=== PATIENT | male | born 1975 | race Caucasian/White ===

== ENCOUNTER 2017-06-05 06:46 | Day surgery (SDC) | payer OTHER ==
[~2017-06-05] VITALS: Ht 177.8 cm; Wt 101.6 kg
[~2017-06-05 06:46] MED LIST: ATOR40TA PO; GABA100 PO; HYDACE5 PO; IBUP800 PO; LORA10 PO; NAPR500 PO; Oxycodone-Apap1 EAC3 PO; RXHYDACE PO; Sudogest30 MG PO
== END 2017-06-05 10:27 | disposition home or self-care (01) ==
LOC: ORSCSDS 06:46
PROVIDERS: Orthopaedic Surgery
PROC: 0SBC4ZZ Excision of Right Knee Joint, Percutaneous Endoscopic Approach (ICD-10-PCS; principal; 2017-06-05 08:00)
DX: M94.261 Chondromalacia, right knee (principal); M23.241 Derangement of anterior horn of lateral meniscus due to old tear or injury, right knee; M65.9 Synovitis and tenosynovitis, unspecified; E78.00 Pure hypercholesterolemia, unspecified; Z79.899 Other long term (current) drug therapy
CPT/HCPCS: J0171; J0690; J1100; J1885; J2250; J2405; J2795; J3010; J7120

== ENCOUNTER 2017-08-03 06:18 | Day surgery (SDC) | payer OTHER ==
[~2017-08-03] VITALS: Ht 177.8 cm; Wt 104.0 kg
[2017-08-03] MEDS ORDERED: FOLGARD TABLET1 EACH PO (06:52)
[2017-08-03] MEDS ORDERED: ATOR40TA (06:52)
[2017-08-03] MEDS ORDERED: MELO7.5 (06:53)
[2017-08-03] MEDS ORDERED: Voltaren100 GM (06:53)
== END 2017-08-03 10:20 | disposition home or self-care (01) ==
LOC: ORSCSDS 06:18
PROVIDERS: Podiatrist Foot & Ankle Surgery
PROC: 0SGM04Z Fusion of Right Metatarsal-Phalangeal Joint with Internal Fixation Device, Open Approach (ICD-10-PCS; principal; 2017-08-03 07:30)
PROC: 0QSN04Z Reposition Right Metatarsal with Internal Fixation Device, Open Approach (ICD-10-PCS; principal; 2017-08-03 07:30)
PROC: 0QPN04Z Removal of Internal Fixation Device from Right Metatarsal, Open Approach (ICD-10-PCS; principal; 2017-08-03 07:30)
DX: M20.11 Hallux valgus (acquired), right foot (principal); M21.961 Unspecified acquired deformity of right lower leg; T84.84XA Pain due to internal orthopedic prosthetic devices, implants and grafts, initial encounter; Z79.899 Other long term (current) drug therapy
CPT/HCPCS: C1713; C1769; J0171; J0690; J1100; J1885; J2250; J2405; J3010; J7120

== ENCOUNTER → 2018-04-04 | Outpatient (CLI) | payer OTHER ==
[~2018-04-04] MED LIST changes: +ACIDOPHILUS1 EAC1 PO; +ATOR40TA; +DOXY100 PO; +FOLGARD TABLET1 EACH PO; +IBUP600 PO; +MELO7.5; +OSEL75CA PO; +PROMETHAZINE CODEINE PO; +VITAMIN D-32000 UNIT PO; +Voltaren100 GM
== END | disposition home or self-care (01) ==
LOC: LAB EV 13:08 → LAB SHORT 13:08
DX: R50.9 Fever, unspecified (principal)
CPT/HCPCS: 87070

== ENCOUNTER 2018-04-05 15:07 | Inpatient (IN) | payer OTHER ==
[~2018-04-05] VITALS: Ht 177.8 cm; Wt 103.9 kg
[~2018-04-05 15:07] MED LIST changes: -ACIDOPHILUS1 EAC1 PO; -DOXY100 PO; -IBUP600 PO; -OSEL75CA PO; -PROMETHAZINE CODEINE PO; -VITAMIN D-32000 UNIT PO
--- NOTE | 2018-04-05 20:07 | NUR ---
report from Nida RN in ER on PT being admitted with inluenza A positive and will have nasal swab for MRSA. Will be obs status, await admission will place in Droplet contact isolation for influenza A positive and rule out MRSA.
[2018-04-05] MEDS ORDERED: IBUP600 PO (20:49)
[2018-04-05] MEDS ORDERED: IBUP800 PO (20:54)
[2018-04-05] MEDS ORDERED: VITAMIN D-32000 UNIT PO (20:59)
[2018-04-05] MEDS ORDERED: PROMETHAZINE CODEINE PO (21:02)
--- NOTE | 2018-04-05 21:54 | NUR ---
SNACK GIVEN TO PT AND ICE PACK FOR HEAD.
[2018-04-06 05:02] LABS: Hematocrit 35.6 % (37.0-53.0); Hemoglobin 12.1 g/dL (13.5-17.5); Mean Corpuscular HGB 31.8 pg (26.0-34.0); Mean Platelet Volume 9.8 fL (9.1-12.4); Platelet Count 191 K/mm3 (150-400); RDW Coefficient Variation 12.7 % (11.7-14.2); White Blood Cell Count 10.76 K/mm3 (4.00-11.30)
[2018-04-06 05:05] LABS: Mean Corpuscular Volume 94 fL (80-100)
[2018-04-06 05:18] LABS: Anion Gap 7 mmol/L (6-16); Blood Urea Nitrogen 11 mg/dL (8-24); CO2, Blood 26 mmol/L (21-32); Chloride, Blood 109 mmol/L (98-108); Creatinine, Blood 0.91 mg/dL (0.60-1.20); Glomerular Filtration Rate >60 (60-); Glucose, Blood 110 mg/dL (70-99); Potassium, Blood 3.7 mmol/L (3.5-5.5); Sodium, Blood 142 mmol/L (136-145)
[2018-04-06 05:35] LABS: BAND PERCENT MAN 34 % (0-8); BASOPHILS PERCENT MAN 0 % (0-2); EOSINOPHILS PERCENT MAN 0 % (0-6); LYMPHOCYTES ABSOLUTE MAN 1.18 K/mm3 (0.84-5.20); LYMPHOCYTES PERCENT MAN 11 % (21-46); METAMYELOCYTE PERCENT MAN 1 % (0-0); MONOCYTES PERCENT MAN 1 % (4-13); NEUTROPHILS ABSOLUTE MAN 9.36 K/mm3 (1.96-9.15); SEG NEUTROPHILS PERCENT MAN 53 % (41-73); TOTAL CELLS COUNTED 100
--- NOTE | 2018-04-06 05:43 | NUR ---
42 year old Male admitted with pneumonia and influenza positive and sepsis. he had fever of 102.8 orally which came down to 99.3 oral with fluids and tylenol. medicated for cough with promethazine and codeine surup 5 ml. pt says bloody thin sputum stopped after cough med. pt had requested ibuprofen rx but DR ROBERTS declined due to potential bleeding from nsaid. pt voids large amts of clear urine.
--- NOTE | 2018-04-06 07:28 | NUR ---
ASSUMED CARE OF PT- RECIEVED REPORT FROM NIGHT [facility] WALDROP. PER REPORT PT HAD A HIGH FEVER ON ADMIT TYLENOL AND ICE PACKS GIVEN. PT DRINKING LOTS OF ICE WATER, ORAL TEMP PROBABLY LESS ACCURATE D/T ICE WATER; HIS TEMP THIS MORNING ON MORNING VITALS WAS 102.9, GAVE TYLENOL WILL RECHECK TEMP IN AN HOUR.
--- NOTE | 2018-04-06 18:18 | NUR ---
SHIFT SUMMARY- PT HAS HAD NO ACUTE CHANGES TODAY TEMPERATURE GOT HIGH AND PT WAS MEDICATED WITH TYLENOL FOR THIS, IVF STILL RUNNING AT THIS TIME. PT C/O SMALL BODY ACHES WHEN THE FEVER STARTS BUT STATED THE TYLENOL SEEMS TO WORK WELL. PT STATED HE CANT TAKE NAPROXEN D/T IT UPSETTING HIS STOMACH WHEN HE HAS TAKEN IT IN THE PAST.
--- NOTE | 2018-04-07 04:16 | NUR ---
pt continues in droplet contact isolation for positive influenza A with rt ll pneumonia. continues on room air with very coarse breath sounds and some pale blood tinged sputum. continues on vancomycin with rocephin added yesterday. mild gen pain relieved by tylenol 650 mg. voids large amt of clear yellow urine. drinks large amt of icewater.
[2018-04-07 05:26] LABS: BASOPHILS ABSOLUTE AUTO 0.02 K/mm3 (0.00-0.23); BASOPHILS PERCENT AUTO 0 % (0-2); EOSINOPHILS ABSOLUTE AUTO 0.04 K/mm3 (0.00-0.68); EOSINOPHILS PERCENT AUTO 0 % (0-6); Hematocrit 33.7 % (37.0-53.0); Hemoglobin 11.5 g/dL (13.5-17.5); IMMATURE GRAN ABSOLUTE AUTO 0.17 K/mm3 (0.00-0.10); IMMATURE GRAN PERCENT AUTO 2 % (0-1); LYMPHOCYTES ABSOLUTE AUTO 1.48 K/mm3 (0.84-5.20); LYMPHOCYTES PERCENT AUTO 14 % (21-46); MONOCYTES ABSOLUTE AUTO 0.41 K/mm3 (0.16-1.47); MONOCYTES PERCENT AUTO 4 % (4-13); Mean Corpuscular HGB 31.1 pg (26.0-34.0); Mean Corpuscular HGB Conc 34.1 g/dL (31.5-36.5); NEUTROPHILS ABSOLUTE AUTO 8.49 K/mm3 (1.96-9.15); NEUTROPHILS PERCENT AUTO 80 % (41-73); Platelet Count 231 K/mm3 (150-400); RDW Coefficient Variation 12.8 % (11.7-14.2); RDW Standard Deviation 42.5 fL (35.1-46.3); White Blood Cell Count 10.61 K/mm3 (4.00-11.30)
[2018-04-07 05:27] LABS: Mean Corpuscular Volume 91 fL (80-100)
[2018-04-07 05:54] LABS: Anion Gap 7 mmol/L (6-16); Blood Urea Nitrogen 12 mg/dL (8-24); Bun/Creatinine Ratio 15.5 (12.0-20.0); CO2, Blood 26 mmol/L (21-32); Calcium, Blood 7.9 mg/dL (8.5-10.1); Chloride, Blood 110 mmol/L (98-108); Creatinine, Blood 0.77 mg/dL (0.60-1.20); Glomerular Filtration Rate >60 (60-); Glucose, Blood 88 mg/dL (70-99); Potassium, Blood 3.9 mmol/L (3.5-5.5); Sodium, Blood 143 mmol/L (136-145)
--- NOTE | 2018-04-07 08:16 | NUR ---
ASSUMED CARE OF PT- BEDSIDE REPORT COMPLETE WITH ROSHAN WALDROP. PER REPORT PT ONLY HAD ONE INCIDENCE OF FEVER LAST NIGHT. ON MORNING VITALS TEMP WAS UP A LITTLE TO 99.0. MEDICATED WITH TYLENOL PT HOT TO THE TOUCH BY THAT TIME. IV INFUSING ABX AT THIS TIME. SOME BODY ACHES STARTING WHEN TYLENOL WAS GIVEN.
[2018-04-07 08:33] LABS: Vancomycin, Trough 5.4 ug/mL (5.0-10.0)
--- NOTE | 2018-04-07 12:56 | NUR ---
SPOKE TO DR HENRIQUEZ, PT RETAINING URINE. NEW ORDER TO PLACE [facility].
--- NOTE | 2018-04-07 15:45 | NUR ---
PT STATED ON LAST ROUNDS THAT HE IS FEELING MUCH BETTER AND COULD" GO HOME ANY TIME NOW" STAFF INFORMED HIM HE COULD WALK IN THE HALLS IF HE FELT HE WANTED TOO. PT HAS CHOSEN NOT TO. STATED "I'M NOT GOING OUT THERE."
--- NOTE | 2018-04-07 18:53 | NUR ---
SHIFT SUMMARY- PT HAS SHOWN GREAT IMPROVEMENT. PT STATES HE FEELS GREAT COMPARED TO WHEN HE GOT HERE. IV IS SL AT THIS TIME. PT ASKED ONCE ABOUT POSSIBLE DISCHARGE BUT IS WILLING TO STAY LONG HE HAS TO IN ORDER TO GET ABX. PT HAD A SHOWE TODAY AND ONLY 1 DOSE OF TYLENOL EARLY IN THE SHIFT. NO C/O PAIN AND NO FEVER AFTER TYLENOL WAS GIVEN THIS MORNING.
[2018-04-08] MEDS ORDERED: DOXY100 PO (10:01)
[2018-04-08] MEDS ORDERED: OSEL75CA PO (10:02)
[2018-04-08] MEDS ORDERED: ACIDOPHILUS1 EAC1 PO (10:02)
--- NOTE | 2018-04-08 11:20 | NUR ---
PATIENT D/C'D TO HOME WITH FAMILY. D/C INSTRUCTIONS AND EDUCATION DISCUSSED WITH PATIENT AND COPY PROVIDED. PATIENT DENIES ANY FURTHER QUESTIONS OR CONCERNS. RX MEDICATIONS FAXED TO [facility].
== END 2018-04-08 11:31 | disposition home or self-care (01) | DRG 871 ==
LOC: ER 15:07 → MEDS 15:08 → ER 15:08 → MEDS 20:39 → ENPENDDIS 04-08 10:08 → MEDS 04-08 11:31
PROVIDERS: Pharmacist; ADMIT Internal Medicine
DX: A41.9 Sepsis, unspecified organism (principal); J10.00 Influenza due to other identified influenza virus with unspecified type of pneumonia; R04.2 Hemoptysis; R65.20 Severe sepsis without septic shock; B00.1 Herpesviral vesicular dermatitis
CPT/HCPCS: 36415; 80048; 80202; 82947; 83605; 84145; 85025; 87040; 96360; 96361; 96365; 96366; 96367; 99285-25; G0378; J0696; J3370; J7030; J7050; J7120

== ENCOUNTER 2018-10-11 09:24 | Day surgery (SDC) | payer OTHER ==
[~2018-10-11] VITALS: Ht 177.8 cm; Wt 100.3 kg
[~2018-10-11 09:24] MED LIST changes: +ACIDOPHILUS1 EAC1 PO; +DICLO GEL1 EACH TOP; +DOXY100 PO; +IBU800 MG PO; +IBUP600 PO; +Lipitor20 MG PO; +Loratadine10 MG PO; +OSEL75CA PO; +PROMETHAZINE CODEINE PO; +VITAMIN D-32000 UNIT PO; +VITAMIN D32000 UNI1 PO
[2018-10-11] MEDS ORDERED: Excedrin Extra1 EACH PO (09:57)
--- NOTE | 2018-10-11 11:38 | NUR ---
10/11/18 1138 Kia Mason PT STATES NO SURGICAL PAIN, JUST A HEADACHE, OFFERED CAFFINATED BEVERAGE HE USUALLY DRINKS COFFEE, HE DECLINED AT THIS TIME.
== END 2018-10-11 11:59 | disposition home or self-care (01) ==
LOC: ORSCSDS 09:24
PROVIDERS: Podiatrist Foot & Ankle Surgery
PROC: 0QSN04Z Reposition Right Metatarsal with Internal Fixation Device, Open Approach (ICD-10-PCS; principal; 2018-10-11 10:45)
PROC: 0QPN04Z Removal of Internal Fixation Device from Right Metatarsal, Open Approach (ICD-10-PCS; principal; 2018-10-11 10:45)
PROC: 0MQS0ZZ Repair Right Foot Bursa and Ligament, Open Approach (ICD-10-PCS; principal; 2018-10-11 10:45)
DX: M77.41 Metatarsalgia, right foot (principal); T84.84XA Pain due to internal orthopedic prosthetic devices, implants and grafts, initial encounter; S93.691A Other sprain of right foot, initial encounter; Z79.899 Other long term (current) drug therapy
CPT/HCPCS: C1713; J0171; J0690; J1100; J2250; J2405; J3010; J7120